=== PATIENT | male | born 1985 | race Caucasian/White ===

== ENCOUNTER → 2018-07-30 14:27 | Outpatient (CLI) | payer BC | END | disposition home or self-care (01) | LOC: D.CT 14:27 | DX: R94.5 Abnormal results of liver function studies (principal) ==

== ENCOUNTER → 2018-08-01 12:10 | Outpatient (CLI) | payer BC | END | disposition home or self-care (01) | LOC: D.NM 12:10 | DX: R94.5 Abnormal results of liver function studies (principal) ==